=== PATIENT | female | born 1945 ===

== ENCOUNTER 2019-08-22 20:10 | Outpatient (CLI) | payer MEDICARE | END 2019-08-22 20:11 | disposition home or self-care (01) | LOC: EMS 20:10 | PROVIDERS: ATTEND Surgery | DX: R47.81 Slurred speech (principal); R53.1 Weakness; R29.810 Facial weakness | CPT/HCPCS: A0425; A0427 ==

== ENCOUNTER 2019-12-04 09:39 | Outpatient (CLI) | payer MEDICARE | END 2019-12-04 09:40 | disposition short-term general hospital (02) | LOC: EMS 09:39 | PROVIDERS: ATTEND Surgery | DX: K92.1 Melena (principal) | CPT/HCPCS: A0425; A0427 ==

== ENCOUNTER 2019-12-14 07:57 | Outpatient (CLI) | payer MEDICARE | END 2019-12-14 07:58 | disposition EMS.NT | LOC: EMS 07:57 | PROVIDERS: ATTEND Surgery | DX: K62.5 Hemorrhage of anus and rectum (principal) ==

== ENCOUNTER 2020-01-12 07:00 | Outpatient (CLI) | payer MEDICARE, OTHER ==
[2020-01-12 20:49] LABS: BILIRUBIN,URINE NEGATIVE (NEGATIVE); GLUCOSE, URINE (UA) NEGATIVE (NEGATIVE); KETONES,URINE (UA) NEGATIVE (NEGATIVE); LEUKOCYTE ESTERASE, URINE LARGE (NEGATIVE); NITRITE,URINE NEGATIVE (NEGATIVE); OCCULT BLOOD,URINE SMALL (NEGATIVE); PROTEIN,URINE NEGATIVE (NEGATIVE); UROBILINOGEN,URINE 0.2 (NORMAL) E.U./dL (NORMAL)
[2020-01-12 20:56] LABS: BACTERIA,URINE Few /HPF (None Seen); CLARITY,URINE HAZY (CLEAR); EPITHELIAL CELLS,UR FEW Renal Tubular /HPF (<= Few); RBC,URINE 0-5 /HPF (0-5); SQUAMOUS EPITHELIAL CELL,UR RARE Squamous (<= Few)
== END 2020-01-12 23:59 | disposition home or self-care (01) ==
LOC: LAB.R 07:00
PROVIDERS: ATTEND Internal Medicine
DX: N39.0 Urinary tract infection, site not specified (principal)
CPT/HCPCS: 81001; 81003; 87077; 87086; 87181

== ENCOUNTER 2020-01-27 07:00 | Outpatient (CLI) | payer MEDICARE ==
[2020-01-27 19:55] LABS: BILIRUBIN,URINE NEGATIVE (NEGATIVE); GLUCOSE, URINE (UA) NEGATIVE (NEGATIVE); KETONES,URINE (UA) NEGATIVE (NEGATIVE); LEUKOCYTE ESTERASE, URINE TRACE (NEGATIVE); NITRITE,URINE NEGATIVE (NEGATIVE); OCCULT BLOOD,URINE MODERATE (NEGATIVE); PH,URINE 7.5 PH (5.0-7.5); PROTEIN,URINE NEGATIVE (NEGATIVE); UROBILINOGEN,URINE 0.2 (NORMAL) E.U./dL (NORMAL)
[2020-01-27 19:59] LABS: CLARITY,URINE CLEAR (CLEAR)
[2020-01-27 20:00] LABS: MEAN CORPUSCULAR HEMOGLOBIN 28.8 pg (27.0-31.0); MEAN CORPUSCULAR HGB CONC 30.4 g/dL (32.0-36.0); MEAN CORPUSCULAR VOLUME 94.9 fL (81.0-99.0); MEAN PLATELET VOLUME 11.5 fL (7.9-10.8); RED BLOOD COUNT 3.12 10^6/uL (4.20-5.40); RED CELL DISTRIBUTION WIDTH 16.6 % (12.0-15.0); WHITE BLOOD COUNT 5.3 x10^3/uL (4.8-10.8)
[2020-01-27 20:11] LABS: BACTERIA,URINE None Seen /HPF (None Seen); RBC,URINE 0-5 /HPF (0-5); SQUAMOUS EPITHELIAL CELL,UR NONE SEEN (<= Few)
[2020-01-27 20:12] LABS: AMORPHOUS SEDIMENT,UR Moderate /LPF
[2020-01-27 20:14] LABS: ALBUMIN 3.4 g/dL (3.2-5.5); ALBUMIN/GLOBULIN RATIO 1.5 (1.0-2.2); BILIRUBIN,TOTAL 0.3 mg/dL (0.2-1.0); CALCIUM 8.8 mg/dL (8.5-10.3); CREATININE 0.6 mg/dL (0.4-1.0); TOTAL PROTEIN 5.7 g/dL (6.7-8.2)
== END 2020-01-27 23:59 | disposition home or self-care (01) ==
LOC: LAB.R 07:00
PROVIDERS: ATTEND Internal Medicine Cardiovascular Disease
DX: D68.69 Other thrombophilia (principal); I48.91 Unspecified atrial fibrillation; N39.0 Urinary tract infection, site not specified
CPT/HCPCS: 80053; 81001; 81003; 85027; 87086